=== PATIENT | male | born 1995 | race Two or more races ===

== ENCOUNTER 2017-07-20 00:22 | Emergency (ER) | payer OTHER ==
[~2017-07-20] VITALS: Ht 180.3 cm; Wt 81.7 kg
[2017-07-20] MEDS ORDERED: TRAMADOL HCL50 MG PO (02:52)
== END 2017-07-20 03:19 | disposition home or self-care (01) ==
LOC: ED 00:22
DX: S62.625A Displaced fracture of middle phalanx of left ring finger, initial encounter for closed fracture (principal); Y04.0XXA Assault by unarmed brawl or fight, initial encounter
CPT/HCPCS: 73140; 99283

== ENCOUNTER 2017-08-03 11:44 | Emergency (ER) | payer OTHER ==
[~2017-08-03] VITALS: Ht 180.3 cm; Wt 83.9 kg
[~2017-08-03 11:44] MED LIST: TRAMADOL HCL50 MG PO
== END 2017-08-03 13:17 | disposition home or self-care (01) ==
LOC: ED 11:44
DX: S62.625D Displaced fracture of middle phalanx of left ring finger, subsequent encounter for fracture with routine healing (principal); X58.XXXD Exposure to other specified factors, subsequent encounter
CPT/HCPCS: 73140; 99283

== ENCOUNTER 2019-05-10 05:43 | Emergency (ER) | payer OTHER ==
[~2019-05-10] VITALS: Ht 180.3 cm; Wt 99.8 kg
--- OUTSIDE RECORDS SUMMARY | 2019-05-10 05:46 | XMS ---
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 - 2 Visits in 30 Days CARE PROVIDERS Sangita Jorgensen Nurse Practitioner: Family [facility] PHONE: Unknown MEHRAN JUAREZ [facility] PHONE: Unknown Isaak Gutierrez Current PHONE: Unknown orpollo Case or Carpenter Inspector Current PHONE: Unknown Amrit Jackson MD Other Current PHONE: Unknown Vijaya has no Care Guidelines for this patient. Yfn VISIT COUNT (12 MO.) 4 [facility] [address] [place] TOTAL 5 NOTE: Visits indicate total known visits. ED/UCC VISIT TRACKING (12 MO.) 05/10/2019 05:43 [facility] [place] TYPE: Emergency COMPLAINT: - SORE THROAT/HEADACHE/FEVER 05/10/2019 04:44 [place] [facility] DIAGNOSES: - COLD SORE THROAT RUNNY NOSE FRAZIER COUGH 03/14/2019 11:47 [place] [employer] [place] TYPE: Emergency DIAGNOSES: - Disp fx of proximal phalanx of right middle finger, init - POSSIBLE FRACTURE RIGHT MIDDLE FINGER 09/04/2018 07:20 [facility] [employer] [place] TYPE: Emergency DIAGNOSES: - Laceration w/o fb of l mid finger w/o damage to nail, init - left hand laceration - Contusion of unsp finger with damage to nail, init encntr - Nondisp fx of middle phalanx of left ring finger, init 06/04/2018 11:21 [facility] [place] TYPE: Emergency DIAGNOSES: - R HAND PAIN - Unspecified sprain of right wrist, initial encounter INPATIENT VISIT TRACKING (12 MO.) No inpatient visits to display in this time frame [email or web address]
== END 2019-05-10 06:31 | disposition home or self-care (01) ==
LOC: ED 05:43
DX: J11.1 Influenza due to unidentified influenza virus with other respiratory manifestations (principal)
CPT/HCPCS: 87502; 99283